=== PATIENT | female | born 1990 | race Caucasian/White ===

== ENCOUNTER 2021-05-01 07:00 | Day surgery (SDC) | payer BC, MEDICAID ==
[~2021-05-01 07:00] MED LIST: ACETAMINOPHEN 500 MG TAB PO SCH; CELECOXIB 200 MG CAP PO NR; GABAPENTIN 300 MG CAP PO NR; LACTATED RINGERS 1,000 ML IV SCH; MIDAZOLAM 2 MG/2 ML INJ IV NR; SCOPOLAMINE TRANSDERMAL PATCH 72 HR TD NR
[2021-05-01] MEDS ORDERED: propofoL 200 MG/20 ML VIAL IV ONE (07:14)
[2021-05-01] MEDS ORDERED: LIDOCAINE MPF (2%) 20 MG/1 ML VIAL 5 ML ONE (07:14)
[2021-05-01] MEDS ORDERED: fentaNYL 100 MCG/2 ML INJ ONE (07:14)
[2021-05-01] MEDS ORDERED: ROCURONIUM 50 MG/5 ML INJ IV ONE (07:14)
--- NOTE | 2021-05-01 07:43 | Anesthesia Consultation ---
Anesthesia Consult and Med Hx Date of service: 05/01/21 - Airway Anesthetic Teeth Evaluation: Good (braces) ROM Head & Neck: Adequate Mental/Hyoid Distance: Adequate Mallampati Class: Class II Intubation Access Assessment: Probably Good - Pre-Operative Health Status ASA Pre-Surgery Classification: ASA3 Proposed Anesthetic Plan: General - Pulmonary Hx Smoking: No Hx Respiratory Symptoms: No Hx Pneumonia: No - Cardiovascular System Hx Hypertension: No Hx Heart Attack/AMI: No - Central Nervous System CVA: No Hx Psychiatric Problems: No - Endocrine Hx Renal Disease: No Hx Liver Disease: No Hx Insulin Dependent Diabetes: No Hx Non-Insulin Dependent Diabetes: No Hx Thyroid Disease: No - Hematic Hx Anemia: Yes (no hx blood transfusions) - Other Systems Hx Obesity: Yes (BMI 40.8) - Additional Comments Anesthesia Medical History Comments: Hx PDNV.
--- NOTE | 2021-05-01 07:44 | Anesthesia Day of Surgery ---
Anesthesia Day of Surgery - Day of Surgery Patient Examined: Yes Patient H&P Reviewed: Yes Patient is NPO: Yes
[2021-05-01] MEDS ORDERED: BACTERIOSTATIC SODIUM CHLORIDE 0.9% 30 ML VIAL INFILTRATI ONE (07:47)
[2021-05-01] MEDS ORDERED: HYDROmorphone 1 MG/1 ML INJ IV PRN (08:00)
[2021-05-01] MEDS ORDERED: oxyCODONE /ACETAMINOPHEN 5-325MG TAB PO PRN (08:00)
[2021-05-01] MEDS ORDERED: ONDANSETRON 4 MG/2 ML INJ IV PRN (08:00)
[2021-05-01] MEDS ORDERED: BUPIVACAINE/PF (0.25%) 2.5 MG/ML 30 ML VIAL INFILTRATI ONE (08:17)
[2021-05-01] MEDS ORDERED: ceFAZolin/Water 2 GM/20 ML 2 GM/20 ML SYRINGE IV ONE (08:36)
--- NOTE | 2021-05-01 08:45 | Operative Report ---
Operative Report Operative Report: Preoperative diagnosis: Menorrhagia,Pelvic pain Postoperative diagnosis extensive pelvic adhesions, of NovaSure procedure per the device, acetowhite epithelium was noted in the 12 o'clock position of her cervix Procedure: Diagnostic laparoscopy, hysteroscopy dilation and curettage with aborted NovaSure endometrial ablation Surgeon Dr. Amie Dinero Assist none Anesthesia GETA Complications extensive pelvic adhesions inhibiting salpingectomy and removal of Filshie clips; aborted endometrial ablation by the device IV fluids 1 L EBL less than 100 mL Urine output 100 mL clear Drains none Findings: Extensive pelvic adhesions, uterus is midline and mobile with no palpable mass, acetowhite epithelium noted at 12:00 at the cervix-patient needs a colposcopy Procedure: Under general anaesthetic in a dorsal lithotomy position, the patient was prepped and draped in the usual sterile manner. Bimanual exam prior to prepping revealed a mobile, anteverted non-enlarged uterus. A weighted speculum was placed in the vagina and with the help of a right angle retractor the anterior lip of the cervix was grasped with a single toothed tinaculum and brought forward. Taking care not to enter deep into the uterus, a sound was passed inside to measure the length of the uterus and cervix. This legth was found to be __10___ cm. Next, a large Hegar dilator was inserted into the cervical os to measure the cervical length which was ___4_ cm. This yielded an endometrial cavity length of __6_. A series of Hegar dilators were then inserted sequentially into the cervical os up to a size of 5 mm. The diagnostic hysteroscope was then introduced into the uterine cavity and the uterus was distended with normal saline fluid. The cavity was examined and found to be normal shape without polyps. Both ostea were visualized. The scope was removed that the cervix was further dilated to 8mm. A curette was introduced into the cavity and a gentle and thorough curettage was performed. The sample was sent to pathology. The Kionixre device was then opened and tested; the fan deployed easily. The instrument was set to the correct cavity length and introduced into the uterine cavity. The fan was slowly deployed with gentle movements to ensure a snug fit within the cavity. The cavity width read ___3.0_. The measurements were imported and a cavity check was done. The NovaSure ablation aborted the procedure and the device was removed per safety recommendations of the ballast cleaning operator. Attention turned to the abdomen where a sharp infraumbilical incision was made with a scalpel and carried down to the fascia. The fascia was grasped with Lizzie clamps and incised in the midline with a curved Saleh scissor s to allow for safe passage of a Sims trocar on direct visualization. The abdomen was then adequately insufflated to allow for passage of the scope. Dense pelvic adhesions inhibited adequate visualization. A lateral 5 mm trocar was placed atraumatically, again I was unable to appreciate any pelvic anatomy due to dense pelvic adhesions. At this point I felt that it was safer to abort the procedure because patient will need an exploratory laparotomy which was not in her consents. All trochars were removed from the abdomen and the incisions were closed with 0 Vicryl at the fascia and Monocryl at the skin. Pressure dressings applied x2 all sponge needle instrument counts were correct x2. Patient's family was notified of her stable postoperative status. She will follow-up as an outpatient. She will need a colposcopy and cervical biopsy at 12:00 as outpatient. All sponge needle instrument counts are correct x2
[2021-05-01 08:51] LABS: Hematocrit 39.3 % (30.3-42.9); Hemoglobin 12.7 gm/dl (10.1-14.3); Mean Corpuscular HGB Conc 32 % (30-34); Mean Corpuscular Volume 86 fl (79-97); Platelet Count 246 K/mm3 (140-440); Red Blood Count 4.56 M/mm3 (3.65-5.03); Red Cell Distribution Width 14.3 % (13.2-15.2)
[2021-05-01] MEDS ORDERED: ceFAZolin/STERILE WATER 2 GM/20 ML SYRINGE IV NR (09:00)
[2021-05-01] MEDS ORDERED: KETOROLAC 30 MG/1 ML INJ ONE (09:06)
[2021-05-01] MEDS ORDERED: dexAMETHasone 20 MG/5 ML VIAL ONE (09:06)
[2021-05-01] MEDS ORDERED: NEOSTIGMINE 10MG/10 ML INJ MDV ONE (09:06)
[2021-05-01] MEDS ORDERED: ONDANSETRON 4 MG/2 ML INJ ONE (09:06)
[2021-05-01] MEDS ORDERED: GLYCOPYRROLATE 0.4 MG/2 ML INJ ONE ×2 (09:07)
[2021-05-01] MEDS ORDERED: HYDROmorphone 1 MG/1 ML INJ ONE (09:33)
[2021-05-01] MEDS ORDERED: .SODIUM CHLORIDE 0.9% IRRIG SOLN 3000 ML IR ONE (09:53)
[2021-05-01] MEDS ORDERED: LACTATED RINGERS 1,000 ML ONE (10:10)
[2021-05-01 12:43] VITALS: BP 132/80
--- NOTE | 2021-05-01 13:50 | Post Anesthesia Evaluation ---
- Post Anesthesia Evaluation Patient Participated: Yes Airway Patent: Yes Stable Respiratory Function: Yes Nausea/Vomiting: No Temp > 96.8F: Yes Pain Manageable: Yes Adequeate Hydration: Yes Anesthesia Complications: No
== END 2021-05-01 12:20 | disposition home or self-care (01) ==
LOC: OR 07:00
PROVIDERS: ATTEND Obstetrics & Gynecology
DX: N92.0 Excessive and frequent menstruation with regular cycle (principal); R10.2 Pelvic and perineal pain; Z88.8 Allergy status to other drugs, medicaments and biological substances; Z87.440 Personal history of urinary (tract) infections; G43.909 Migraine, unspecified, not intractable, without status migrainosus; Z90.49 Acquired absence of other specified parts of digestive tract; Z98.51 Tubal ligation status; E66.9 Obesity, unspecified; Z90.710 Acquired absence of both cervix and uterus; Z72.89 Other problems related to lifestyle; Z82.49 Family history of ischemic heart disease and other diseases of the circulatory system; Z80.3 Family history of malignant neoplasm of breast
CPT/HCPCS: 36415; 49320; 58563; 81025; 85027; 88305; J0690; J1100; J1170; J1815; J1885; J2405; J2704; J2710; J3010; J3490; J7120; J2250